=== PATIENT | female | born 1985 | race Caucasian/White ===

== ENCOUNTER 2019-04-26 00:19 | Emergency (ER) | payer OTHER ==
[~2019-04-26] VITALS: Ht 162.6 cm; Wt 59.0 kg
[2019-04-26] MEDS ORDERED: NOHOMEMEDICATIONS (00:44)
[2019-04-26] MEDS ORDERED: MOBIC15 MG PO (01:50)
[2019-04-26 03:15] VITALS: BP 125/82
== END 2019-04-26 03:45 | disposition home or self-care (01) ==
LOC: ER 00:19
DX: S20.219A Contusion of unspecified front wall of thorax, initial encounter (principal); F17.210 Nicotine dependence, cigarettes, uncomplicated; Z88.1 Allergy status to other antibiotic agents; Z88.8 Allergy status to other drugs, medicaments and biological substances; V89.0XXA Person injured in unspecified motor-vehicle accident, nontraffic, initial encounter; Y93.89 Activity, other specified; Y92.89 Other specified places as the place of occurrence of the external cause; Y99.8 Other external cause status